=== PATIENT | female | born 1960 | race Caucasian/White ===

== ENCOUNTER → 2016-12-07 | Outpatient (CLI) | payer BC ==
[~2016-12-07] MED LIST: ASA OR; AVALIDE 12.5 MG1 TAB PO
--- NOTE | 2016-12-10 10:57 | RADIOLOGY REPORT PS360 ---
DIG MAMM-SCREEN [facility]ZY W/CAD CAD Screening COMPARISON: Digital mammograms 11/10/2015 and 11/01/2014 INDICATION: There is no personal or family history of breast cancer TECHNIQUE: Standard CC and MLO images were obtained. R2 CAD reviewed. FINDINGS: The breasts are composed primarily of fat with minimal scattered fibroglandular densities noted in each breast. Again noted is a subtle area of asymmetric fiber glandular density upper outer quadrant left breast which is stable. There is no new or suspicious lesion in either breast and no suspicious microcalcifications. IMPRESSION: Fatty type breast parenchyma with no suspicious lesion seen recommend yearly follow-up BI-RADS CATEGORY: 1_Negative RECOMMENDED FOLLOWUP: 12M 12 MONTH FOLLOW-UP (A letter has been sent to the patient regarding results of the study.)
== END ==
LOC: RAD 07:54
DX: Z12.31 Encounter for screening mammogram for malignant neoplasm of breast (principal)
CPT/HCPCS: G0202